=== PATIENT | male | born 2000 | race Caucasian/White ===

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

== ENCOUNTER 2018-06-23 21:20 | Emergency (ER) | payer MEDICAID | END 2018-06-23 21:40 | disposition left against medical advice (07) | LOC: ER 21:20 | DX: Z53.21 Procedure and treatment not carried out due to patient leaving prior to being seen by health care provider (principal) ==

== ENCOUNTER 2018-12-28 20:46 | Emergency (ER) | payer MEDICAID ==
[2018-12-28 21:25] VITALS: BP 130/86
== END 2018-12-29 00:30 | disposition left against medical advice (07) ==
LOC: ER 20:46
DX: Z53.21 Procedure and treatment not carried out due to patient leaving prior to being seen by health care provider (principal); S61.419A Laceration without foreign body of unspecified hand, initial encounter; X58.XXXA Exposure to other specified factors, initial encounter